=== PATIENT | born 1985 ===

== ENCOUNTER 2017-12-20 07:23 | Emergency (ER) | payer SELFPAY ==
[2017-12-20] MEDS ORDERED: TYLENOL ONE (07:54)
[2017-12-20] MEDS ORDERED: TYLENOL PO ONE (08:00)
[2017-12-20 08:04] VITALS: BP 125/81
[2017-12-20] MEDS ORDERED: FIORICET PO ONE (10:08)
--- NOTE | 2017-12-20 10:28 | Emergency Department Report ---
ED General Adult HPI - General Chief complaint: Headache Stated complaint: HEADACHE Time Seen by Provider: 12/20/17 09:35 Source: patient, foreign language interpreter (translation device used) Mode of arrival: Ambulatory Limitations: Language Barrier - History of Present Illness Initial comments: Patient presents to the emergency department with complaint of a posterior headache started 2 days ago. Patient describes the headache as throbbing in nature and denies anything making it better or worse. Patient states this is not the worse headache of his life. -: Gradual Location: head Radiation: non-radiation Severity scale (0 -10): 4 Quality: other (throbbing) Consistency: constant Improves with: none Worsens with: none Associated Symptoms: denies other symptoms Treatments Prior to Arrival: none - Related Data Previous Rx's Medication Instructions Recorded Last Taken Type Butalb/Acetamin/Caff 50-325-40 1 tab PO Q6HR PRN #20 tab 12/20/17 Unknown Rx [Fioricet] Allergies Allergy/AdvReac Type Severity Reaction Status Date / Time No Known Allergies Allergy Verified 12/20/17 08:11 ED Review of Systems ROS: Stated complaint: HEADACHE Other details as noted in HPI Constitutional: denies: chills, fever Eyes: denies: eye pain, eye discharge, vision change ENT: denies: ear pain, throat pain Respiratory: denies: cough, shortness of breath, wheezing Cardiovascular: denies: chest pain, palpitations Endocrine: no symptoms reported Gastrointestinal: denies: abdominal pain, nausea, diarrhea Genitourinary: denies: urgency, dysuria Genitourinary: denies: urgency, dysuria, discharge Musculoskeletal: denies: back pain, joint swelling, arthralgia Skin: denies: rash, lesions Neurological: denies: headache, weakness, paresthesias Psychiatric: denies: anxiety, depression Hematological/Lymphatic: denies: easy bleeding, easy bruising ED Past Medical Hx - Past Medical History Previous Medical History?: Yes Hx Hypertension: Yes (no meds prescribed, has been normotensive for yrs) - Surgical History Past Surgical History?: No - Social History Smoking Status: Light Tobacco Smoker Substance Use Type: Alcohol - Medications Home Medications: Home Medications Medication Instructions Recorded Confirmed Last Taken Type Butalb/Acetamin/Caff 50-325-40 1 tab PO Q6HR PRN #20 tab 12/20/17 Unknown Rx [Fioricet] ED Physical Exam - General Limitations: No Limitations, Language Barrier, Other (air value tester device used) General appearance: alert, in no apparent distress - Head Head exam: Present: atraumatic, normocephalic - Eye Eye exam: Present: normal appearance, PERRL, EOMI - ENT ENT exam: Present: mucous membranes moist - Neck Neck exam: Present: normal inspection, full ROM. Absent: tenderness, meningismus - Respiratory Respiratory exam: Present: normal lung sounds bilaterally. Absent: respiratory distress, wheezes, rales, rhonchi - Cardiovascular Cardiovascular Exam: Present: regular rate, normal rhythm. Absent: systolic murmur, diastolic murmur, rubs, gallop - GI/Abdominal GI/Abdominal exam: Present: soft, normal bowel sounds. Absent: distended, tenderness - Rectal Rectal exam: Present: deferred - Extremities Exam Extremities exam: Present: normal inspection - Back Exam Back exam: Present: normal inspection - Neurological Exam Neurological exam: Present: alert, oriented X3, CN II-XII intact, normal gait, reflexes normal. Absent: motor sensory deficit - Psychiatric Psychiatric exam: Present: normal affect, normal mood - Skin Skin exam: Present: warm, dry, intact, normal color. Absent: rash ED Course Vital Signs 12/20/17 12/20/17 12/20/17 07:47 08:05 10:12 Temperature 98.3 F Pulse Rate 57 Respiratory 18 18 20 Rate Blood Pressure 125/81 O2 Sat by Pulse 99 Oximetry ED Medical Decision Making - Medical Decision Making Discussed CT results with patient relief of headache with medications Patient form his me that he was fitted for eyewear 2 weeks ago and is waiting for his new glasses and contacts. States the reason he went to get his eyes checked was because he was having headaches. Critical care attestation.: If time is entered above; I have spent that time in minutes in the direct care of this critically ill patient, excluding procedure time. ED Disposition Clinical Impression: Headache Disposition: DC-01 TO HOME OR SELFCARE Is pt being admited?: No Does the pt Need Aspirin: No Condition: Stable Instructions: Acute Headache (ED) Additional Instructions: return if worse Prescriptions: Butalb/Acetamin/Caff 50-325-40 [Fioricet] 1 tab PO Q6HR PRN #20 tab PRN Reason: Headache Referrals: PRIMARY CARE, [Primary Care Provider] - 3-5 Days [facility] [Outside] - 3-5 Days Time of Disposition: 11:35 Print Language: SLOVENIAN
--- NOTE | 2017-12-20 10:54 | Cat Scan Report ---
FINAL REPORT EXAM: CT HEAD/BRAIN WO CON HISTORY: headache COMPARISON: None. TECHNIQUE: Multiple contiguous axial images were obtained from the skullbase the vertex without administration of IV contrast. FINDINGS: Brain volume is normal for age. No hemorrhage, mass, mass effect, or midline shift. Ventricles are not enlarged. Normal basal cisterns. No pathologic extra-axial fluid collection. No evidence of acute infarct. No skull fracture. Paranasal sinuses and mastoid air cells are clear. Bilateral orbits are grossly intact. IMPRESSION: No acute intracranial abnormality.
== END 2017-12-20 11:42 | disposition home or self-care (01) ==
LOC: ED 07:23
DX: R51 Headache (principal); I10 Essential (primary) hypertension; F17.200 Nicotine dependence, unspecified, uncomplicated
CPT/HCPCS: 70450